=== PATIENT | female | born 1965 | race Caucasian/White ===

== ENCOUNTER 2023-07-13 09:55 | Emergency (ER) | payer BC, SELFPAY ==
[2023-07-13] VITALS (33 sets, daily range): BP systolic 152–172; BP diastolic 68–102; PULSE 57–81; RESP 9–23; TEMP 36.4; O2SAT 95–100
--- NOTE | 2023-07-13 10:00 | RT.EKG_ITS ---
APPROVED REPORT Exam: Resting ECG Reason for Exam: Chest Pain Patient Location: E HR:73 bpm ECG Measurements Heart Rate 73 AXIS VT 147 P 62 QRSd 92 QRS 7 QT 373 T 33 QTc 410 Conclusion Sinus rhythm...normal P axis, V-rate 60- 99 Narrow complex normal sinus rhythm at a rate of 73Low voltage precordial leads. Intervals within nor mal limits. No acute injury pattern. Low voltage. No prior for comparison
--- NOTE | 2023-07-13 10:15 | DI.CT_ITS ---
Exam(s) CT THORAX ABD/PEL CTA EXAM: CT THORAX ABD/PEL CTA CLINICAL HISTORY: retrosternal chest pain. TECHNIQUE: Imaging Protocol: Axial computed tomography images with coronal and sagittal reformatted images were created and reviewed CONTRAST MATERIAL: Intravenous: Omnipaque 350 Contrast volume:100 ml Oral: None COMPARISON: No exams were available for comparison FINDINGS: CHEST: AORTA: Thoracic aorta exhibits normal diameter and no dissection. No pericardial effusion. The diam eter of the arch and descending thoracic aorta is normal. There is no evidence of abdominal aortic a neurysm nor significant aneurysm nor atherosclerotic disease of the common and external iliac arterie s. Common femoral arteries also unremarkable. The celiac and superior mesenteric arteries are nicel y patent. The renal arteries exhibit no significant stenosis. The inferior mesenteric artery is pat ent. There is no significant atherosclerotic narrowing of the aortic bifurcation. LUNGS: No infiltrates nor pleural effusions. Calcified granuloma noted in the posterior basal segmen t right lower lobe. There are no ominous pulmonary nodules. No bronchiectasis.. MEDIASTINUM: There is no hilar nor mediastinal adenopathy. Large multinodular thyroid goiter noted. CARDIAC: Heart size is normal. There is no pericardial effusion. No shift of the interventricular s eptum. AORTA: See above.There is no evidence of aortic dissection. ABDOMEN: There is no ascites. LIVER: Multiple focal hypodensities in the liver have the appearance of benign cysts, realized limita tions of an arterial phase study for determining nature of liver lesions.. GALLBLADDER/BILIARY: Gallbladder surgically absent. There are no dilated intrahepatic ducts. CBD is not dilated. PANCREAS: There is a solitary hypodensity in the anterior aspect of the pancreatic body measuring 5 x 4 mm. Has appearance of benign cyst SPLEEN: Spleen is not enlarged. There are no intrasplenic lesions. Splenic and portal veins are sandoval nt. ADRENALS: There are no significant adrenal masses. KIDNEYS: There are multiple benign cysts throughout the kidneys-expression of adult polycystic kidney disease. Size of these benign cysts range up to 7 cm in the right kidney and 6.5 cm in the left kid marcela. There are no solid renal masses, calculi, nor evidence of hydronephrosis. Ureters are not dila ronal. No significant focal findings in the urinary bladder.. ABDOMINAL AORTA: See above LYMPH NODES: There is no retroperitoneal nor para-aortic adenopathy. No obvious mesenteric masses. ABDOMINAL WALL: No evidence of significant anterior abdominal wall hernia. GI: There is no evidence of bowel obstruction, free air, nor abscess. PELVIS: LYMPH NODES: There is no intrapelvic nor inguinal adenopathy. GI: No evidence of appendicitis.No evidence of sigmoid diverticulitis. URINARY BLADDER: No calculi nor masses evident REPRODUCTIVE: Uterus size normal. No ovarian masses. There are 2 contiguous cystic structures on th e posterior aspect of the lower uterine segment with combined measurement of 2.8 by 1.2 by 1.4 cm. Is difficult to identify the ovaries as separate structures. OSSEOUS: No significant osseous lesions. No fractures. IMPRESSION: 1. No evidence of thoracic aortic aneurysm nor aortic dissection no evidence of pericardial effusion. The abdominal aorta and aortoiliac segments are also unremarkable. 2. Adult polycystic kidney disease. Cysts range up to 7 cm size. No solid renal masses. No calculi nor hydronephrosis. 3. Indeterminate adjacent cystic densities along the posterior margin of the lower uterine segment. Combined measurement is 28 x 12 x 14 mm. Can be further studied with pelvic ultrasound. Also tali rison to any prior outside imaging studies of the pelvis would be helpful. 4. Multiple hypodensities also noted in the liver which are probably cysts. 5. there is a solitary 5 millimeter hypodensity in the pancreatic body which is probably a cyst. RADIATION DOSE DELIVERED: 1,163.17mGy.cm Total DLP DATA REPOSITORY: All CT scans at this facility are submitted to the National Radiology Data Registry (NRDR) Dose Index Registry (DIR) with the [employer] (ACR). RADIATION OPTIMIZATION: All CT scans at this facility use at least one of these dose optimization te chniques: automated exposure control; mA and/or kV adjustment per patient size (includes targeted exa ms where dose is matched to clinical indication); or iterative reconstruction.
--- NOTE | 2023-07-13 10:16 | W.ED.GENAD ---
HPI General Mode of arrival: ambulatory. Date/Time Provider Initiated Documentation: 07/13/23 10:05. Limitations to Documentation: no limitations. Information obtained by: patient, RN notes reviewed and old records reviewed. HPI Narrative: 57-year-old female presents to the ER with chief complaint of sternal chest pain which radiates into the back x 2 days, she also reports that it goes into her left shoulder. She reports that it is better with certain positions and after taking Advil. She denies any nausea vomiting shortness of breath or dizziness denies any diaphoresis. She reports that she does have some swelling to her lower extremities upon sitting for prolonged periods of time and travel. She does have a history of a thyroid nodule that she has not gotten followed up with. She does not have a primary care provider. Denies taking any medications no other past medical history. She does have a past surgical history of cholecystectomy. No known drug allergies. Related Data Home Medications Medication Instructions Recorded Confirmed Unknown [No Known Home Meds] 07/13/23 07/13/23 Allergies Allergy/AdvReac Type Severity Reaction Status Date / Time No Known Allergies Allergy Unverified 07/13/23 10:34 General Stated Complaint: Chest Pain BA: 2 Review of Systems All systems reviewed & are unremarkable except as noted in HPI and below Constitutional Constitutional: Denies snoring Cardiovascular Cardiovascular: Reports as per HPI, Reports chest pain, Reports radiating jaw, neck or arm pain, Reports palpitations, Denies dyspnea and Denies orthopnea Respiratory Respiratory: Denies chest congestion, Reports cough (States that she has been making herself cough to get rid of the discomfort ), Denies hemoptysis, Denies excessive phlegm production, Denies dyspnea, Denies snoring, Denies stridor and Denies wheezing Gastrointestinal Gastrointestinal: Denies abdominal pain, Denies diarrhea, Denies nausea and Denies vomiting Endocrine Endocrine: Reports as per HPI, Reports change in body appearance and Reports palpitations Allergic/Immunologic Allergic/Immunologic: Denies wheezing PFSH All Active Problems (Updated 07/16/23 @ 18:51 by Lexie John NP) Chest pain (Acute) Liver cyst (Acute) Thyroid goiter (Acute) Fibroid, uterine (Acute) Social History Smoking/Tobacco Use Status: Never Smoking risk assessment performed?: Yes Alcohol Intake: never Drug use: Never Substance use type: does not use Do you feel safe at home: Yes Do you feel safe in your relationship?: Yes Exam Narrative Exam Narrative: Constitutional: Alert and oriented x3. Appears stated age. Normal body habitus. Head: Normocephalic, no trauma. Eyes: Pupils PERRL, Red reflex noted, EOM's intact. Eyelids symmetrical without lesions, discharge, or swelling. ENT: Bilateral TM's WNL, External ear normal to inspection, no mastoid TTP, swelling, or erythema, Nasal turbinates WNL, no nasal discharge. Normal dentition, Posterior pharynx WNL, no exudate. Chest: RRR, Normal S1, S2, distal pulses intact. Midsternal chest pain which is reproducible with palpation, however she does report that it radiates up into her left shoulder and into her back. Resp: Lungs clear to auscultation bilaterally, no wheezes, rales, or rhonchi. Abdomen: Soft, non-distended, Normoactive bowel sounds all 4 quads. Musculoskeletal: Normal gait, 5/5 strength to all four extremities. Skin: No suspicious rashes or lesions. Capillary refill less than 2 sec. Neurologic: Cranial nerves II-XII intact. Alert and oriented x 3. Motor: No deficits noted. Sensory: Intact bilaterally all 4 extremities. Reflexes: DTR's intact bilaterally.. Hematologic/Lymphatic: No ecchymosis, no lymphadenopathy. Course Vital Signs Vital signs: Vital Signs Temperature 36.4 C 07/13/23 10:03 Pulse 79 07/13/23 10:03 Respiratory Rate 11 L 07/13/23 10:03 Blood Pressure 166/78 H 07/13/23 10:03 Pulse Oximetry 96 07/13/23 10:03 Temperature 36.4 C 07/13/23 10:03 Temperature Source Temporal Artery Scan 07/13/23 10:03 Pulse 79 07/13/23 10:03 Respiratory Rate 11 L 07/13/23 10:03 Blood Pressure 166/78 H 07/13/23 10:03 Blood Pressure Position Sitting 07/13/23 10:03 Pulse Oximetry 96 07/13/23 10:03 Oxygen Delivery Method Room Air 07/13/23 10:03 Oxygen Flow Rate 0 07/13/23 10:03 Pain Level 3 07/13/23 10:03 Medical Decision Making 57-year-old female presents to the ER with chief complaint of sternal chest pain which radiates into the back x 2 days, she also reports that it goes into her left shoulder. She reports that it is better with certain positions and after taking Advil. She denies any nausea vomiting shortness of breath or dizziness denies any diaphoresis. She reports that she does have some swelling to her lower extremities upon sitting for prolonged periods of time and travel. She does have a history of a thyroid nodule that she has not gotten followed up with. She does not have a primary care provider. Denies taking any medications no other past medical history. She does have a past surgical history of cholecystectomy. No known drug allergies. EKG was reviewed by Dr. Lama ER attending, no old EKG available for review. Normal sinus rhythm, no STEMI noted. Workup ordered including serial troponins, proBNP, TSH with refractory T4, CTA thorax abdomen pelvis and 324 mg of aspirin. Differential diagnosis includes but not limited to NSTEMI, CAD, aneurysm, musculoskeletal pain, endocarditis. CT chest abdomen pelvics shows no PE identified does have multiple cystic densities along the posterior margin of the uterus that are hypoechoic attenuating with 60 mm of fluid density. Multiple multiple cysts noted in the kidneys cyst in the liver and a thyroid goiter which is multinodular. Patient reports to me that she was told years ago that she had a nodule on her goiter and has never since followed up. She also reports family history of polycystic kidney disease. She does not currently have a primary care provider is not established at this time. At this time we will repeat troponin and EKG given GI cocktail and patient was placed on PCP establishment list. I did discuss at length the results of her CT imaging she verbalized understanding. Informed by staffing specialist that patient recently had some heavy lifting and just returned from [place] few days ago. Serial troponin WNL. This text was generated using [employer] system, please disregard any oddities of phrase or misspellings. Lab Data Lab results reviewed: Yes I reviewed the patient's lab results. Labs: Laboratory Tests Range/Units 07/13/23 07/13/23 07/13/23 10:23 10:23 10:23 WBC (4.4-10.8) 10^3/uL 9.94 RBC (3.93-5.22) 10^6/uL 4.55 Hgb (11.2-15.7) g/dL 13.3 Hct (36.0-46.0) % 40.2 MCV (80-95) fL 88 MCH (27.0-33.0) pg 29.2 MCHC (32.0-36.0) % 33.1 RDW (11.7-14.6) % 12.8 Plt Count (130-400) 10^3/uL 265 MPV (8.0-11.0) fL 9.6 Immature Gran % 0.3 Neutrophils % 67.5 Lymphocytes % 21.1 Monocytes % 8.4 Eosinophils % 2.5 Basophils % 0.2 Nucleated RBC % (0.0-0.3) % 0.0 Absolute Neutrophils (1.2-6.7) 10^3/uL 6.71 H Absolute Lymphocytes (1.2-3.4) 10^3/uL 2.10 Absolute Monocytes (0.1-0.8) 10^3/uL 0.83 H Absolute Eosinophils (0.0-0.7) 10^3/uL 0.25 Absolute Basophils (0.0-0.2) 10^3/uL 0.02 PT (9.1-11.1) sec 9.9 INR (0.9-1.1) 1.0 APTT (23.6-32.8) sec 26.5 Sodium (136-145) mmol/L 143 Potassium (3.5-5.1) mmol/L 4.1 Chloride (98-107) mmol/L 106 Carbon Dioxide (21.0-32.0) mmol/L 28.5 Anion Gap (3-11) mmol/L 8.5 BUN (7-18) mg/dL 12 Creatinine (0.55-1.02) mg/dL 0.8 Est GFR (CKD-EPI 2020) (mL/min/1.73m2) 85.35 Glucose (74-106) mg/dL 101 Calcium (8.5-10.1) mg/dL 9.5 Magnesium (1.8-2.4) mg/dL 2.1 Total Bilirubin (0.2-1.0) mg/dL 0.3 AST (15-37) U/L 46 H ALT (14-59) U/L 41 Alkaline Phosphatase (46-116) U/L 54 Troponin I (< or =60) ng/L < 50 NT-Pro-B Natriuret Pep (<300) pg/mL 144 Cancelled Total Protein (6.4-8.2) g/dL 6.9 Albumin (3.4-5.0) g/dL 3.4 TSH (0.36-3.74) uIU/mL 0.85 Cancelled Add-On Test Request Cancelled Range/Units 07/13/23 13:22 WBC (4.4-10.8) 10^3/uL RBC (3.93-5.22) 10^6/uL Hgb (11.2-15.7) g/dL Hct (36.0-46.0) % MCV (80-95) fL MCH (27.0-33.0) pg MCHC (32.0-36.0) % RDW (11.7-14.6) % Plt Count (130-400) 10^3/uL MPV (8.0-11.0) fL Immature Gran % Neutrophils % Lymphocytes % Monocytes % Eosinophils % Basophils % Nucleated RBC % (0.0-0.3) % Absolute Neutrophils (1.2-6.7) 10^3/uL Absolute Lymphocytes (1.2-3.4) 10^3/uL Absolute Monocytes (0.1-0.8) 10^3/uL Absolute Eosinophils (0.0-0.7) 10^3/uL Absolute Basophils (0.0-0.2) 10^3/uL PT (9.1-11.1) sec INR (0.9-1.1) APTT (23.6-32.8) sec Sodium (136-145) mmol/L Potassium (3.5-5.1) mmol/L Chloride (98-107) mmol/L Carbon Dioxide (21.0-32.0) mmol/L Anion Gap (3-11) mmol/L BUN (7-18) mg/dL Creatinine (0.55-1.02) mg/dL Est GFR (CKD-EPI 2020) (mL/min/1.73m2) Glucose (74-106) mg/dL Calcium (8.5-10.1) mg/dL Magnesium (1.8-2.4) mg/dL Total Bilirubin (0.2-1.0) mg/dL AST (15-37) U/L ALT (14-59) U/L Alkaline Phosphatase (46-116) U/L Troponin I (< or =60) ng/L < 50 NT-Pro-B Natriuret Pep (<300) pg/mL Total Protein (6.4-8.2) g/dL Albumin (3.4-5.0) g/dL TSH (0.36-3.74) uIU/mL Add-On Test Request Quality:[facility] Related Social Needs: No Data to Display Discharge Plan Disposition Patient Disposition: Home Condition: Stable Discharge Details Clinical Impression: Fibroid, uterine, Thyroid goiter, Liver cyst, Chest pain Primary Care Provider: None,None ED Provider: Lexie John Home Meds and New Rx's Prescriptions: No Action No Known Home Meds Discharge Instructions Instructions: Chest Pain (ED), Thyroid Goiter (ED) Additional Instructions: Plan placed on a primary care provider establishment list. Follow up with primary care provider in 3-5 days. Return to ED sooner if any worsening or concerns. Increase oral fluids. Please take Tylenol or Ibuprofen with food every 4-6 hours as needed for pain and swelling. The CT showed multiple cysts on your kidneys, liver and uterus, please follow-up with this with your primary care provider. Labs are largely within normal limits. No evidence of infection or bleeding. Your TSH was also within normal limits. Referrals: Tana Shay NP [NURSE PRACTITIONER] - 1 week Discharge Data Discharge Date/Time-TO BE ENTERED AT DEPARTURE: 07/13/23 14:22
[2023-07-13] MEDS: Aspirin 81 MG CHEW 324 MG CH (10:25)
[2023-07-13 10:30] LABS: Abs Immature Grans 0.03 10^3/uL (0.0-0.06); Absolute Basophil Count 0.02 10^3/uL (0.0-0.2); Absolute Eosinophil Count 0.25 10^3/uL (0.0-0.7); Absolute Monocyte Count 0.83 10^3/uL (0.1-0.8); Absolute Neutrophil Count 6.71 10^3/uL (1.2-6.7); Basophils % 0.2; Eosinophils % 2.5; HCT 40.2 % (36.0-46.0); HGB 13.3 g/dL (11.2-15.7); Immature Grans % 0.3; Lymphocytes % 21.1; MCH 29.2 pg (27.0-33.0); MCHC 33.1 % (32.0-36.0); MCV 88 fL (80-95); MPV 9.6 fL (8.0-11.0); Monocytes % 8.4; Neutrophils % 67.5; Platelet Count 265 10^3/uL (130-400); RBC 4.55 10^6/uL (3.93-5.22); RDW 12.8 % (11.7-14.6); RDW-SD 41.8 fL; WBC 9.94 10^3/uL (4.4-10.8)
[2023-07-13 10:42] LABS: Prothrombin Time 9.9 sec (9.1-11.1)
[2023-07-13 10:52] LABS: PTT Activated 26.5 sec (23.6-32.8)
[2023-07-13 11:02] LABS: ALT 41 U/L (14-59); AST 46 U/L (15-37); Albumin 3.4 g/dL (3.4-5.0); Alkaline Phosphatase 54 U/L (46-116); Anion Gap 8.5 mmol/L (3-11); BUN 12 mg/dL (7-18); Bilirubin, Total 0.3 mg/dL (0.2-1.0); CO2 28.5 mmol/L (21.0-32.0); CREATININE 0.8 mg/dL (0.55-1.02); Calcium 9.5 mg/dL (8.5-10.1); Chloride 106 mmol/L (98-107); Estimated GFR 85.35 (mL/min/1.73m2); Glucose 101 mg/dL (74-106); Magnesium 2.1 mg/dL (1.8-2.4); NT-proBNP 144 pg/mL (<300); Potassium 4.1 mmol/L (3.5-5.1); Sodium 143 mmol/L (136-145); TSH (W/Ref FT4) 0.85 uIU/mL (0.36-3.74); Total Protein 6.9 g/dL (6.4-8.2); Troponin I < 50 ng/L (< or =60)
[2023-07-13] MEDS: Normal Saline - Diluent 50 ML VIAL IJ (11:16)
[2023-07-13] MEDS: Normal Saline Flush 10 ML SYR IVP (11:16)
[2023-07-13] MEDS: Omnipaque 350 MG/ML 100 ML BTL IJ (11:17)
--- NOTE | 2023-07-13 12:27 | DI.VRAD_ITS ---
PROCEDURE INFORMATION: Exam: CTA Chest With Contrast CTA Abdomen and Pelvis With Contrast Exam date and time: 07/13/2023 11:15 AM Age: 57 years old Clinical indication: Pain; Other: History of fall confusion TECHNIQUE: Imaging protocol: Computed tomographic angiography of the chest with contrast. Exam focused on the arteries. Computed tomographic angiography of the abdomen and pelvis with contrast. Exam focused on the arteries. 3D rendering (Not supervised by radiologist): MIP and/or 3D reconstructed images were created by the technologist. Contrast material: OMNIPAQUE 350; Contrast volume: 100 ml; Contrast route: INTRAVENOUS (IV); COMPARISON: No relevant prior studies available. FINDINGS: VASCULATURE: Pulmonary arteries: No pulmonary embolism identified. Aorta: No acute aortic abnormality identified. Celiac trunk and mesenteric arteries: No occlusion or significant stenosis. Renal arteries: No occlusion or significant stenosis. Right iliac arteries: No occlusion or significant stenosis. Left iliac arteries: No occlusion or significant stenosis. Thyroid: Multinodular goiter. CHEST: Lungs: No pulmonary laceration or contusional injury identified. Pleural spaces: Unremarkable. No pneumothorax. No pleural effusion. Heart: Unremarkable. No cardiomegaly. No pericardial effusion. ABDOMEN AND PELVIS: Liver: Multiple cysts noted in the liver. Gallbladder and bile ducts: The gallbladder is surgically absent. Pancreas: Unremarkable. No mass. No ductal dilation. Spleen: Unremarkable. No splenomegaly. Adrenal glands: Unremarkable. No mass. Kidneys and ureters: Innumerable cysts noted in the kidneys. The kidneys enhance symmetrically and empty into non-dilated ureters. Stomach and bowel: The stomach appears unremarkable. The small bowel loops are not abnormally dilated. The large bowel loops are not abnormally dilated. Colonic diverticulosis without signs of acute diverticulitis. Appendix: The appendix appears normal. Intraperitoneal space: Unremarkable. No free air. No significant fluid collection. Urinary bladder: Unremarkable. No mass. Reproductive: 13 mm round hypoattenuating cystic fluid density collection along the posterior margin of the uterus, abutting and additional 16 mm fluid density cyst (axial series 11, image 1025 and 1044). Lymph nodes: Unremarkable. No enlarged lymph nodes. Bones/joints: No fracture identified. Soft tissues: Unremarkable. IMPRESSION: 1. No pulmonary embolism identified. 2. No acute thoracic, abdominal, or pelvic injury identified. 3. Indeterminate cystic densities along the posterior margin of the uterus, possibly exophytic cyst/fibroids or cystic lymph nodes. Recommend comparison with any prior outside imaging versus nonemergent pelvic ultrasound. Dictated and Authenticated by: Brandon Nicolas MD. Ordering:ADRIAN Owen MD
--- NOTE | 2023-07-13 13:00 | RT.EKG_ITS ---
APPROVED REPORT Exam: Resting ECG Reason for Exam: Repeat Patient Location: E HR:66 bpm ECG Measurements Heart Rate 66 AXIS VA 162 P 30 QRSd 94 QRS 9 QT 391 T 26 QTc 409 Conclusion Sinus arrhythmia...V-rate 57- 80, variation>10% Low voltage, precordial leads...precordial leads <1.0mV Narrow complex normal sinus rhythm at a rate of 66 with sinus arrhythmia. Low voltage precordial ora ds. Intervals within normal limits. No acute injury pattern. Low voltage. Similar to prior dated earlier today.
--- NOTE | 2023-07-13 13:17 | NUR.NOTE ---
Referred Pt to [facility] for help establishing a Primary Care Provider and for ER follow up within 3 weeks.
[2023-07-13] MEDS: Lidocaine 2% Viscous 1 ML Solution 15 ML PO (13:24)
[2023-07-13] MEDS: Milk of Magnesia 30 ML CUP PO (13:24)
[2023-07-13 13:42] LABS: Troponin I < 50 ng/L (< or =60)
== END 2023-07-13 14:22 | disposition home or self-care (01) ==
PROVIDERS: Emergency Provider Registered Nurse Emergency
DX: R07.9 Chest pain, unspecified (principal); M54.9 Dorsalgia, unspecified; M25.512 Pain in left shoulder; I10 Essential (primary) hypertension; K76.89 Other specified diseases of liver; E04.9 Nontoxic goiter, unspecified; D25.9 Leiomyoma of uterus, unspecified
CPT/HCPCS: 36415; 71275; 80053; 93005; 99285; 74174; 83735; 83880; 84443; 84484; 85025; 85610; 85730; 93010; 99283; J3490